=== PATIENT | female | born 1965 | race Caucasian/White ===

== ENCOUNTER 2018-12-01 06:51 | Emergency (ER) | payer MEDICAID ==
[~2018-12-01] VITALS: Ht 165.1 cm; Wt 59.0 kg
--- NOTE | 2018-12-01 07:10 | NUR ---
Pt BIBRA complaining of Chest pain x 1hrs. Pt AXO4. Respirations even and unlabored. Pt ambulatory with steady gait. Pt put on the monitor and pulse ox.
[2018-12-01] MEDS ORDERED: ASPIRIN 81 MG TAB.CHEW ONE (07:12)
[2018-12-01 07:27] LABS: BASOPHILS % (AUTO) 0.6 % (0.0-2.0); EOSINOPHILS % (AUTO) 1.7 % (0.0-6.0); HEMATOCRIT 39 % (33-45); HEMOGLOBIN 12.9 g/dL (11.5-14.8); LYMPHOCYTES # (AUTO) 2.3 /CMM (0.8-4.8); MEAN CORPUSCULAR HGB CONC 34 g/dl (31.0-36.0); MEAN CORPUSCULAR VOLUME 91 fL (82-100); MONOCYTES # (AUTO) 0.5 /CMM (0.1-1.30); NEUTROPHILS # (AUTO) 4.6 /CMM (1.8-8.9); NEUTROPHILS % (AUTO) 60.7 % (43.0-81.0); PLATELET COUNT (AUTO) 256 /CMM (150-450); RED BLOOD CELL COUNT(AUTO) 4.23 MIL/uL (4.0-5.2); WHITE BLOOD COUNT (AUTO) 7.6 K/uL (4.3-11.0)
[2018-12-01] MEDS ORDERED: ASPIRIN 81 MG TAB.CHEW PO ONE (07:30)
--- NOTE | 2018-12-01 07:30 | NUR ---
Xray at bedside.
--- NOTE | 2018-12-01 07:32 | NUR ---
Pt refused XRAY.
[2018-12-01 07:36] LABS: CALCIUM, SERUM 9.1 mg/dL (8.5-10.1); CARBON DIOXIDE 28 mmol/L (21-32); CHLORIDE 104 mmol/L (98-107); CREATININE 0.6 mg/dL (0.6-1.3); GLUCOSE 99 mg/dL (74-106); POTASSIUM 3.7 mmol/L (3.5-5.1); SODIUM SERUM 143 mmol/L (136-145); UREA NITROGEN, BLOOD 12 mg/dL (7-18)
--- NOTE | 2018-12-01 07:36 | NUR ---
Report given to David KILGORE for [facility].
--- NOTE | 2018-12-01 08:07 | NUR ---
CALLED MARILIN GOMEZ FOR HOMELESS RESOURCES.
--- NOTE | 2018-12-01 10:02 | NUR ---
IV removed. Catheter intact and site benign. Pressure and 4x4 applied to site. No bleeding noted. Patient discharged to waiting room in stable condition. Written and verbal after care instructions given. Patient verbalizes understanding of instruction. awaiting for taxi ride.
[2018-12-01 10:04] VITALS: BP 110/63
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
== END 2018-12-01 10:07 | disposition home or self-care (01) ==
LOC: ER 06:54
DX: R07.89 Other chest pain (principal); Z98.890 Other specified postprocedural states; Z88.0 Allergy status to penicillin; Z88.5 Allergy status to narcotic agent; Z88.6 Allergy status to analgesic agent
CPT/HCPCS: 36415; 80048-TC; 84484-TC; 85025-TC